=== PATIENT | female | born 1985 | race Caucasian/White ===

== ENCOUNTER 2016-12-07 11:48 | Emergency (ER) | payer OTHER ==
[~2016-12-07 11:48] MED LIST: Z.0.NO CURRENT MEDS
--- NOTE | 2016-12-07 12:41 | PD ---
HPI Chief Complaint ? leaking fluid Date Seen: Dec 07, 2016 Time Seen: 12:20 Travel History International Travel<30 Days: No Contact w/Intl Traveler<30Days: No Known Affected Area: No History of Present Illness HPI Pt is a 31 y/o with IUP at 37.4 weeks present for evaluation of possible fluid leaking. Pt reports that she lost mucous plug this am and felt some leakage afterward. Was not enough to get underwear wet. Pt denies contractions, vb. +FM Para: 1 : 2 History Past Medical History Medical History: Denies Significant Hx Obstetric History Obstetric History 02/16/2015 FTSVD, induction for post-dates at 41 wks Past Surgical History Narrative Surgical wrist surgery Family History Family History: Negative Social History Alcohol Use: No Tobacco Use: No Substance Abuse: No Allergies-Medications (Allergen,Severity, Reaction): Coded Allergies: No Known Allergies (Verified , 02/24/11) Home Meds Reported Medications Miscellaneous (No Current Meds) Misc 02/24/11 Narrative Medication vitamins Review of Systems General / Constitutional: No: Fever, Weight Gain, Weight Loss, Chills, Other Eyes: No: Diploplia, Blurred Vision, Visual changes, Pain, Photophobia, Other HENT: No: Headaches, Vertigo, Dental Difficulties, Lightheadedness, Other Cardiovascular: No: Irregular Rhythm, Chest Pain or Discomfort, Palpitations, Tachycardia, Syncope, Varicosities, Edema, Cyanosis, Other Respiratory: No: Cough, Short of Breath, Wheezing, Other Gastrointestinal: No: Nausea, Vomiting, Diarrhea, Abdominal Pain, Hematemesis, Hematochezia, Constipation, Changes in Bowel Habits, Indigestion, Loss of Appetite, Other Genitourinary: No: Urgency, Frequency, Dysuria, Nocturia, Hematuria, Decreased Urinary Output, Oliguria, Hesitancy, Dribbling, Incontinence, Pelvic Pain, Dyspareunia, Discharge, Menorrhagia, Vaginal Bleeding, Other Musculoskeletal: No: Limited ROM, Weakness, Cramping, Edema, Pain, Other Skin: No Rash, No Itching, No Dryness, No Lumps, No Change in Pigmentation, No Change in Nails, No Alopecia, No Lesions, No Breast Lumps, No Breast Tenderness , No Breast Swelling, No Other Neurologic: No: Weakness, Dizziness, Syncope, Focal Abnormalities, Coordination Problem, Headache, Slurred Speech, Seizures, Other Psychiatric: No: Anxiety, Depression, Suicidal Ideations, Disorder of Thought, Mood Disorder, Substance Abuse, Homicidal Ideation, Other Endocrine: No: Heat Intolerance, Cold Intolerance, Polydipsia, Polyuria, Other Hematologic/Lymphatic: No Easy Bruising, No Lymph Node Enlargement, No Other Physical Exam 111/64, 20, 97, 99.9 Narrative GENERAL: Well-nourished, well-developed patient. SKIN: Warm and dry. HEAD: Normocephalic and atraumatic. EYES: No scleral icterus. No injection or drainage. ENT: No nasal drainage noted. Mucous membranes pink. Airway patent. NECK: Supple, trachea midline. No JVD. CARDIOVASCULAR: Regular rate and rhythm without murmurs, gallops, or rubs. RESPIRATORY: Breath sounds equal bilaterally. No accessory muscle use. . ABDOMEN/GI: Abdomen soft, non-tender, bowel sounds present, no rebound, no guarding Gravid GENITOURINARY: External Genitalia: intact and normal in appearance BUS glands: [wnl] Cervix: posterior, soft Dilatation: 1 Effacement: 25 Station: -3 Presentation: [facility] Membranes: intact, amnisure negative Uterine Contractions: irregular FHT's: Category: 1 Baseline: 130s Reactive: yes Variability: mod Decels: none EXTREMITIES: No cyanosis or edema. BACK: Nontender without obvious deformity. No CVA tenderness. NEUROLOGICAL: Awake and alert. Motor and sensory grossly within normal limits. Five out of 5 muscle strength in all muscle groups. Normal speech. Data Data Vital Signs Reviewed: Yes MDM Medical Record Reviewed: Yes ( records reviewed) Narrative Course / MDM 31 y/o with IUP at 37.4 wks, no evidence of SROM or labor cat 1 tracing d/c home labor precautions, [facility] Diagnosis Diagnosis: Primary Impression: No leakage of amniotic fluid into vagina Additional Impression: 37 weeks gestation of Disposition: 01 DISCHARGE HOME Condition: Stable Patient Instructions: General Instructions, Early Labor Signs (ED), Having Your Baby: The Labor Process (GEN) Brandon Melton MD Dec 07, 2016 12:41
== END 2016-12-07 12:55 | disposition home or self-care (01) ==
LOC: HOBED 11:48
DX: O26.893 Other specified pregnancy related conditions, third trimester (principal); Z3A.37 37 weeks gestation of pregnancy
CPT/HCPCS: 59025; 84112

== ENCOUNTER 2016-12-08 22:50 | Inpatient (IN) | payer OTHER ==
[~2016-12-08] VITALS: Ht 170.2 cm; Wt 78.0 kg
[2016-12-08] MEDS: LACTATED RINGER'S 1000 ML INJ 1,000 ML IV SCH (23:21)
[2016-12-08] MEDS ORDERED: LACTATED RINGER'S 1000 ML INJ 1,000 ML IV PRN (23:21)
--- NOTE | 2016-12-08 23:21 | PD ---
HPI Chief Complaint Rupture of membranes Date Seen: Dec 08, 2016 Time Seen: 23:17 Travel History International Travel<30 Days: No Contact w/Intl Traveler<30Days: No Known Affected Area: No History of Present Illness HPI 31-year-old who is at 39 weeks 3 days comes in complaining of leaking of fluid per vagina that began at 10 PM tonight. She had a little pink spotting in the fluid as well which is why she came in. Patient has had irregular intermittent contractions. Denies bright red vaginal bleeding and she has had normal movement. She is group B strep negative Para: 1 : 2 History Past Medical History Medical History: Denies Significant Hx Obstetric History Obstetric History Spontaneous vaginal delivery 8 lbs. 2 oz. Past Surgical History Narrative Surgical Wrist surgery Family History Family History: Negative Social History Alcohol Use: No Tobacco Use: No Substance Abuse: No Allergies-Medications (Allergen,Severity, Reaction): Coded Allergies: No Known Allergies (Verified , 02/24/11) Home Meds Reported Medications Miscellaneous (No Current Meds) [facility] Review of Systems Except as stated in HPI: all other systems reviewed are Neg Physical Exam Narrative GENERAL: Well-nourished, well-developed patient. SKIN: Warm and dry. HEAD: Normocephalic and atraumatic. EYES: No scleral icterus. No injection or drainage. ENT: No nasal drainage noted. Mucous membranes pink. Airway patent. NECK: Supple, trachea midline. No JVD. CARDIOVASCULAR: Regular rate and rhythm without murmurs, gallops, or rubs. RESPIRATORY: Breath sounds equal bilaterally. No accessory muscle use. BREASTS: Bilateral exam showed no masses , no retractions, no nipple discharge. ABDOMEN/GI: Abdomen soft, non-tender, bowel sounds present, no rebound, no guarding Gravid to [38-] weeks size Fundal Height: [-] GENITOURINARY: External Genitalia: intact and normal in appearance BUS glands: [-Normal] Cervix: [Mid position-] Dilatation: [-1] Effacement: [50-] Station: [--2] Presentation: [-Vertex] Membranes: [ruptured] clear fluid, blood-tinged Uterine Contractions: [-Occasional every 8-10 minutes] FHT's: Category: [1-] Baseline: [140-] Reactive: [Moderate-] Variability: [-Moderate] Decels: [-Absent] EXTREMITIES: No cyanosis or edema. BACK: Nontender without obvious deformity. No CVA tenderness. NEUROLOGICAL: Awake and alert. Motor and sensory grossly within normal limits. Five out of 5 muscle strength in all muscle groups. Normal speech. Data Data Vital Signs Reviewed: Yes MDM Medical Record Reviewed: Yes Plan 31-year-old who is at 39 weeks 3 days, group B strep negative, with premature rupture of membranes at term Patient will need admission to labor delivery Dr. coffman was notified of the admission Diagnosis Diagnosis: Primary Impression: 39 weeks gestation of Additional Impression: Premature rupture of membranes Nneka Barron MD Dec 08, 2016 23:21
[2016-12-08] MEDS ORDERED: LIDOCAINE HCL 1% 50 ML VIAL INFIL PRN (23:30)
[2016-12-08] MEDS ORDERED: LIDOCAINE HCL 1% 50 ML VIAL I-DERMAL PRN (23:30)
[2016-12-08] MEDS ORDERED: OXYTOCIN 30 UNITS-500ML PREMIX 500 ML IV ONE (23:30)
[2016-12-08] MEDS ORDERED: SODIUM CHLORID 0.9% 500 ML INJ 500 ML IV PRN (23:30)
[2016-12-08] MEDS ORDERED: MINERAL OIL 10 ML VIAL TOPICAL PRN (23:30)
[2016-12-08] MEDS ORDERED: CITRIC ACID-SODIUM CITRATE LIQ 30 ML UDC PO SCH (23:30)
[2016-12-08] MEDS ORDERED: OXYTOCIN 30 UNITS-500ML PREMIX 500 ML IV SCH (23:30)
[2016-12-08] MEDS ORDERED: SODIUM CHLOR 0.9% 1000 ML INJ 1,000 ML IV PRN (23:41)
[2016-12-09] VITALS (31 sets, daily range): BP systolic 86–141; BP diastolic 23–85; PULSE 75–150; RESP 17–18; TEMP 97.6–98.2
[2016-12-09] MEDS ORDERED: FERR325T8 PO (00:04)
[2016-12-09] MEDS ORDERED: TRICTAB PO (00:04)
[2016-12-09 00:22] LABS: AUTOMATED NEUTROPHIL # 9.8 TH/MM3 (1.8-7.7); BASOPHIL % 0.3 % (0.0-2.0); EOSINOPHIL # 0.2 TH/MM3 (0-0.4); EOSINOPHIL % 1.3 % (0.0-4.0); HEMATOCRIT 36.1 % (35.0-46.0); HEMO FLAGS DIFF FINAL; LYMPH % 15.1 % (9.0-44.0); LYMPHOCYTE # 1.9 TH/MM3 (1.0-4.8); MEAN CELL VOLUME 94.1 FL (80.0-100.0); MONO % 6.2 % (0.0-8.0); NEUT % 77.1 % (16.0-70.0); PLATELET COUNT 156 TH/MM3 (150-450); RED BLOOD COUNT 3.84 MIL/MM3 (4.00-5.30); RED CELL DISTRIBUTION WIDTH 13.3 % (11.6-17.2); WHITE BLOOD COUNT 12.7 TH/MM3 (4.0-11.0)
[2016-12-09] MEDS ORDERED: fentaNYL 2MCG-BUPIV 0.125% INJ 100 ML ONE (02:28)
[2016-12-09] MEDS ORDERED: ONDANSETRON ODT 4 MG TAB PO PRN (05:30)
[2016-12-09] MEDS ORDERED: BENZOCAINE 20% TOPICAL SPRAY 60 ML CAN TOPICAL PRN (05:30)
[2016-12-09] MEDS ORDERED: ZOLPIDEM TARTRATE 5 MG TAB PO PRN (05:30)
[2016-12-09] MEDS ORDERED: ALUMINUM/MAGNESIUM/SIMETH 30 ML CUP PO PRN (05:30)
[2016-12-09] MEDS ORDERED: SODIUM CHLORIDE 0.9% FLUSH 10 ML FLUSH IV FLUSH PRN (05:30)
[2016-12-09] MEDS ORDERED: oxyCODONE/ACETAMINOPHEN 5 MG/325 MG TAB PO PRN ×2 (05:30)
[2016-12-09] MEDS ORDERED: WITCH HAZEL 50%/GLYCERIN 12.5% 40 PAD JAR TOPICAL PRN (05:30)
--- NOTE | 2016-12-09 06:14 | MH ---
cc: GINGER IBARRA MD DATE OF ADMISSION: 12/08/2016 ADMITTING DIAGNOSIS: Term with spontaneous rupture of membranes. HISTORY OF PRESENT ILLNESS The patient is a 31-year-old white female para 1 with a EDC of 12/24/2016 by early ultrasound. Her preop course has been benign. She had spontaneous rupture of membranes at 10:50 p.m., she was advised to come to the center. She is admitted. confirmed. She is now admitted for delivery. PAST HISTORY Previous surgery none. MEDICATIONS Vitamins. ALLERGIES None TRANSFUSIONS None. PAST MEDICAL HISTORY: Repair right wrist fracture. OBSTETRICAL HISTORY One vaginal every term, 8 pounds 9 ounces 41 weeks. SOCIAL HISTORY , homemaker. Alcohol, tobacco and drugs are none. FAMILY HISTORY Noncontributory. PHYSICAL EXAMINATION: IN GENERAL: She is well-nourished, well-developed, white female, vital signs stable. HEAD, EYES, EARS, NOSE, AND THROAT: Exam is normal. CHEST: The chest is clear, regular rate. ABDOMEN: Gravid. EFW of 34 grams. Cervix is 1-2, 50 vertex, ruptured per Dr. Barron. PLAN She is now admitted for Pitocin induction, epidural p.r.n. for delivery. MD CAT Pruett/vern /12:20 AM /6:11 AM
[2016-12-09] MEDS ORDERED: SODIUM CHLORIDE 0.9% FLUSH 10 ML FLUSH IV FLUSH SCH (09:00)
[2016-12-09] MEDS: IBUPROFEN 600 MG TAB PO PRN ×3 (09:17→22:04)
[2016-12-09] MEDS: ACETAMINOPHEN 325 MG TAB PO PRN ×2 (15:45→22:04)
[2016-12-09] MEDS ORDERED: MEASLES, MUMPS, RUBELLA VACCINE 0.5 ML VIAL SQ ONE (16:00)
[2016-12-09] MEDS ORDERED: DIPHTH/TETANUS/ACEL PERTUSSIS (BOOSTER) 0.5 ML VIAL/PFS IM ONE (16:00)
[2016-12-09] MEDS: DOCUSATE SODIUM 50 MG/SENNA 8.6 MG TAB PO PRN (22:04)
[2016-12-09] MEDS: LACTATED RINGER'S 1000 ML INJ 1,000 ML IV SCH (23:21)
[2016-12-10] MEDS: IBUPROFEN 600 MG TAB PO PRN ×2 (04:20→10:29)
[2016-12-10] MEDS: ACETAMINOPHEN 325 MG TAB PO PRN ×2 (04:20→10:28)
[2016-12-10 05:57] LABS: AUTOMATED NEUTROPHIL # 7.1 TH/MM3 (1.8-7.7); BASOPHIL # 0.1 TH/MM3 (0-0.2); BASOPHIL % 0.6 % (0.0-2.0); EOSINOPHIL # 0.2 TH/MM3 (0-0.4); EOSINOPHIL % 1.9 % (0.0-4.0); HEMATOCRIT 33.1 % (35.0-46.0); HEMO FLAGS DIFF FINAL; LYMPH % 19.9 % (9.0-44.0); MEAN CELL VOLUME 94.7 FL (80.0-100.0); MEAN CORPUSCULAR HGB CONC 34.9 % (32.0-36.0); MONO % 7.3 % (0.0-8.0); NEUT % 70.3 % (16.0-70.0); PLATELET COUNT 119 TH/MM3 (150-450); RED BLOOD COUNT 3.49 MIL/MM3 (4.00-5.30); RED CELL DISTRIBUTION WIDTH 13.4 % (11.6-17.2); WHITE BLOOD COUNT 10.1 TH/MM3 (4.0-11.0)
[2016-12-10 08:00] VITALS: BP 108/69; PULSE 76; RESP 16; TEMP 98.2
[2016-12-10] MEDS: DOCUSATE SODIUM 50 MG/SENNA 8.6 MG TAB PO PRN (10:28)
--- NOTE | 2016-12-10 12:13 | HHI.DCPOC ---
Discharge Care Plan Report Symptoms to Your Doctor -Temperature above 100.5 degrees -Redness, of incision or excessive or foul smelling drainage -Unusual pain or calf pain -Increased vaginal bleeding -Painful or difficulty urinating -Feelings of extreme sadness or anxiety after 2 weeks Goals to Promote Your Health * To prevent worsening of your condition and complications * To maintain your health at the optimal level Directions to Meet Your Goals Take your medications as prescribed Follow your dietary instruction Follow activity as directed Ensure plenty of rest for recovery Drink fluids for hydration Keep your appointments as scheduled Take your immunizations and boosters as scheduled If your symptoms worsen call your PCP, if no PCP go to Urgent Care Center or Emergency Room Smoking is Dangerous to Your Health. Avoid second hand smoke Call the 24-hour crisis hotline for domestic abuse at Mele Cadet MD Dec 10, 2016 12:13
== END 2016-12-10 12:33 | disposition home or self-care (01) | DRG 775 ==
LOC: HOBED 22:50 → H2EA 23:25 → H1EA 12-09 08:06
PROVIDERS: ADMIT Obstetrics & Gynecology; ATTEND Obstetrics & Gynecology
PROC: 10E0XZZ Delivery of Products of Conception, External Approach (ICD-10-PCS; principal; 2016-12-08)
PROC: 0HQ9XZZ Repair Perineum Skin, External Approach (ICD-10-PCS; 2016-12-08)
PROC: 3E0R3CZ (ICD-10-PCS; 2016-12-08)
PROC: 00HU33Z Insertion of Infusion Device into Spinal Canal, Percutaneous Approach (ICD-10-PCS; 2016-12-08)
DX: O70.0 First degree perineal laceration during delivery (principal); Z37.0 Single live birth; Z3A.39 39 weeks gestation of pregnancy
CPT/HCPCS: 84112; 85025; 86703; 86900; 86901